=== PATIENT | female | born 1950 | race African-American/Black ===

== ENCOUNTER 2020-07-14 16:37 | Inpatient (IN) | payer MEDICARE, MEDICAID ==
[~2020-07-14] VITALS: Ht 175.3 cm; Wt 100.3 kg
[2020-07-14] MEDS ORDERED: VANCOMYCIN 1 G PREMIX 200 ML IV SCH (18:00)
[2020-07-14] MEDS ORDERED: AZITHROMYCIN 500 MG in DEXT 5% WATER 250 ML IV SCH (18:00)
[2020-07-14] MEDS ORDERED: SODIUM CHLORIDE 0.9% 1,000 ML IV ONE (18:00)
[2020-07-14] MEDS ORDERED: PIPERACILLIN/TAZOBACTAM 3.375GM/50ML PREMIX IV ONE (18:00)
[2020-07-14] MEDS ORDERED: ONDANSETRON HCL 4MG/2ML INJ IV ONE (18:30)
[2020-07-14 21:54] LABS: BASOPHILS % 0.6 % (0.0-2.0); EOSINOPHILS % 0.3 % (0.0-5.0); HEMOGLOBIN. 11.6 g/dL (12.0-16.0); MEAN CORPUSCULAR HEMOGLOBIN 24.7 pg (28.0-32.0); MEAN CORPUSCULAR VOLUME 76.6 fL (81.0-99.0); MEAN PLATELET VOLUME 10.9 fl (7.4-10.4); MONOCYTES % 5.3 % (2.0-8.0); NEUTROPHILS % 75.8 % (40.0-76.0); PLATELET 169 x1000/uL (130-400); RED BLOOD CELL COUNT 4.71 mill/uL (4.2-5.4); RED CELL DISTRIBUTION WIDTH 15.5 % (11.6-14.6)
[2020-07-14 22:04] LABS: CHLORIDE 105 mEq/L (98-107)
[2020-07-14 23:49] LABS: CLARITY URINE CLEAR (CLEAR); COLOR URINE YELLOW (YELLOW); KETONES URINE 1+ (NEGATIVE); LEUKOCYTE ESTERASE URINE NEGATIVE (NEGATIVE); NITRITE URINE NEGATIVE (NEGATIVE); OCCULT BLOOD URINE NEGATIVE (NEGATIVE); PH URINE 8.5 (4.5-8.0); PROTEIN URINE 1+ (NEGATIVE); SPECIFIC GRAVITY URINE 1.017 (1.005-1.030); UROBILINOGEN URINE 0.2 E.U./dL (0.2-1.0)
[2020-07-15] VITALS (7 sets, daily range): BP systolic 121–165; BP diastolic 57–79
[2020-07-15] MEDS ORDERED: ACETAMINOPHEN 325MG TABLET PO PRN (03:15)
[2020-07-15] MEDS ORDERED: MORPHINE SULFATE 2 MG/ML CPJ (NOT FOR IM USE) IV PRN (03:15)
[2020-07-15] MEDS ORDERED: CLONIDINE 0.1MG TABLET PO PRN (03:15)
[2020-07-15] MEDS ORDERED: DEXTROSE 50% WATER 50ML SYRINGE IV PRN (03:15)
[2020-07-15] MEDS ORDERED: ONDANSETRON HCL 4MG/2ML INJ IV PRN (03:15)
[2020-07-15] MEDS ORDERED: GLIM2TAB30 PO (03:23)
[2020-07-15] MEDS ORDERED: LOSA100T32 PO (03:23)
[2020-07-15] MEDS ORDERED: POTA10TA11 PO (03:23)
[2020-07-15] MEDS ORDERED: METO-385 PO (03:23)
[2020-07-15] MEDS ORDERED: ATOR40TA70 PO (03:23)
[2020-07-15] MEDS ORDERED: GABA-532 PO (03:23)
[2020-07-15] MEDS ORDERED: NIFE-33 PO (03:23)
[2020-07-15] MEDS ORDERED: METF-416 PO (03:23)
[2020-07-15] MEDS ORDERED: FURO40TA5 PO (03:23)
[2020-07-15] MEDS: SODIUM CHLORIDE 0.9% 1,000 ML IV SCH ×2 (04:30→13:28)
[2020-07-15 06:24] LABS: BASOPHILS % 0.4 % (0.0-2.0); EOSINOPHILS % 0.4 % (0.0-5.0); HEMATOCRIT. 35.3 % (36.0-48.0); HEMOGLOBIN. 11.5 g/dL (12.0-16.0); LYMPHOCYTES % 24.5 % (20.0-50.0); MEAN CORPUSCULAR HEMOGLOBIN 25.1 pg (28.0-32.0); MEAN CORPUSCULAR VOLUME 76.7 fL (81.0-99.0); MEAN PLATELET VOLUME 10.9 fl (7.4-10.4); MONOCYTES % 8.3 % (2.0-8.0); NEUTROPHILS % 66.4 % (40.0-76.0); PLATELET 172 x1000/uL (130-400); RED CELL DISTRIBUTION WIDTH 15.3 % (11.6-14.6)
[2020-07-15 06:33] LABS: CHLORIDE 106 mEq/L (98-107)
[2020-07-15] MEDS: BLOOD SUGAR DIAGNOSTIC STRIP TEST SCH ×4 (07:20→20:55)
[2020-07-15] MEDS: GLIMEPIRIDE 2MG TABLET PO SCH ×3 (07:50→17:51)
[2020-07-15] MEDS: INSULIN LISPRO 100 UNITS/ML SUBCUT SCH ×5 (07:50→20:56)
[2020-07-15] MEDS: METFORMIN HCL 500MG TABLET PO SCH ×3 (07:50→17:52)
[2020-07-15] MEDS: LOSARTAN POTASSIUM 100 MG TABLET PO SCH ×2 (08:26→10:18)
[2020-07-15] MEDS: POTASSIUM CHLORIDE 10MEQ TABLET SR PO SCH ×2 (08:26→10:16)
[2020-07-15] MEDS: NIFEDIPINE XL 90MG TAB PO SCH ×2 (08:27→10:16)
[2020-07-15] MEDS: METOPROLOL TARTRATE 50MG TABLET PO SCH ×3 (08:27→20:55)
[2020-07-15] MEDS: GABAPENTIN 300MG CAPSULE PO SCH ×4 (08:27→17:51)
[2020-07-15] MEDS: ENOXAPARIN 30MG/0.3ML SYR SUBCUT SCH ×2 (09:00→20:56)
[2020-07-15] MEDS ORDERED: FUROSEMIDE 40MG TABLET PO SCH (09:00)
[2020-07-15] MEDS: INSULIN GLARGINE UD 100 UNITS/ML SYR SUBCUT SCH ×2 (11:42→23:20)
[2020-07-15] MEDS: METOCLOPRAMIDE HCL 10MG/2ML VIAL IV SCH ×3 (13:05→23:17)
[2020-07-15] MEDS ORDERED: ATORVASTATIN CALCIUM 40MG TABLET PO SCH (21:00)
[2020-07-15] MEDS ORDERED: IOHEXOL-300 100 ML BOTTLE ONE ×2 (21:16→21:17)
[2020-07-16 04:00] VITALS: BP 132/70
[2020-07-16] MEDS: METOCLOPRAMIDE HCL 10MG/2ML VIAL IV SCH ×3 (06:25→17:54)
[2020-07-16] MEDS: BLOOD SUGAR DIAGNOSTIC STRIP TEST SCH ×3 (06:25→17:56)
[2020-07-16 08:00] VITALS: BP 141/81
[2020-07-16] MEDS: METOPROLOL TARTRATE 50MG TABLET PO SCH (08:49)
[2020-07-16] MEDS: LOSARTAN POTASSIUM 100 MG TABLET PO SCH (08:49)
[2020-07-16] MEDS: POTASSIUM CHLORIDE 10MEQ TABLET SR PO SCH (08:49)
[2020-07-16] MEDS: GLIMEPIRIDE 2MG TABLET PO SCH ×2 (08:49→17:53)
[2020-07-16] MEDS: NIFEDIPINE XL 90MG TAB PO SCH (08:49)
[2020-07-16] MEDS: METFORMIN HCL 500MG TABLET PO SCH ×2 (08:50→17:54)
[2020-07-16] MEDS: INSULIN LISPRO 100 UNITS/ML SUBCUT SCH ×3 (08:51→18:00)
[2020-07-16] MEDS: ENOXAPARIN 30MG/0.3ML SYR SUBCUT SCH (09:12)
[2020-07-16] MEDS: GABAPENTIN 300MG CAPSULE PO SCH ×3 (09:12→17:56)
[2020-07-16 12:00] VITALS: BP 185/92
[2020-07-16] MEDS: INSULIN GLARGINE UD 100 UNITS/ML SYR SUBCUT SCH (13:06)
[2020-07-16 16:00] VITALS: BP 163/76
[2020-07-16] MEDS ORDERED: INSU100I28 SQ (17:09)
[2020-07-16 18:38] VITALS: BP 163/96
== END 2020-07-16 20:50 | disposition home or self-care (01) | DRG 241 ==
LOC: ER 16:37 → MICUSO 21:33 → EDBEDREQTM 21:35 → EDBEDREQ 21:35 → 6WST 23:57 → 6EST 07-16 11:25
PROVIDERS: ADMIT Internal Medicine Nephrology; ATTEND Internal Medicine Nephrology
DX: K29.70 Gastritis, unspecified, without bleeding (principal); K52.9 Noninfective gastroenteritis and colitis, unspecified; E11.65 Type 2 diabetes mellitus with hyperglycemia; I10 Essential (primary) hypertension; E66.9 Obesity, unspecified; E78.5 Hyperlipidemia, unspecified; M79.10 Myalgia, unspecified site; Z88.5 Allergy status to narcotic agent; Z88.6 Allergy status to analgesic agent; Z91.040 Latex allergy status; Z68.32 Body mass index [BMI] 32.0-32.9, adult
CPT/HCPCS: 36415; 71045; 74177; 80048; 80053; 81003; 82010; 82962; 83036; 83605; 83880; 84484; 85025; 93005; 99285; C1893; J0456; J1650; J1815; J2405; J2765; J7030; J7060; Q9967

== ENCOUNTER → 2025-08-01 | Outpatient (CLI) | payer MEDICARE, MEDICAID ==
[~2025-08-01] MED LIST: ALLO100T PO; AMLO10TA80 PO; ATOR20TA65 PO; DAPA5TAB PO; GLIM4TAB36 PO; HYDR-2988 PO; METF-416 PO; METO-385 PO
== END | disposition home or self-care (01) ==
LOC: MRI 09:17
PROVIDERS: ATTEND Neurological Surgery
DX: M47.817 Spondylosis without myelopathy or radiculopathy, lumbosacral region (principal); M47.812 Spondylosis without myelopathy or radiculopathy, cervical region; M51.369 Other intervertebral disc degeneration, lumbar region without mention of lumbar back pain or lower extremity pain; M50.30 Other cervical disc degeneration, unspecified cervical region; M48.02 Spinal stenosis, cervical region; N28.89 Other specified disorders of kidney and ureter; M48.07 Spinal stenosis, lumbosacral region; D18.09 Hemangioma of other sites
CPT/HCPCS: 72141; 72148